=== PATIENT | female | born 1930 | race Caucasian/White ===

== ENCOUNTER 2018-12-07 14:22 | Emergency (ER) | payer BC ==
[~2018-12-07] VITALS: Ht 160 cm; Wt 61.7 kg
[2018-12-07 14:35] VITALS: BP 146/73
--- NOTE | 2018-12-07 14:41 | NUR ---
PT TO WAIT IN ER LOBBY. VSS AND [id number].
--- NOTE | 2018-12-07 15:01 | NUR ---
88 Y/O FEMALE BIB DAUGHTER. PT AAO X4 C/O OF PAIN ACROSS HER RIBS AND UPPER ABDOMEN XTODAY. PER DAUGHTER, HER PAIN IS AT A 10/10 SINCE 10AM. PER DAUGHTER, PT IS NAUSEATED, DIZZY, DRY HEAVING. PER DAUGHTER, NO MEDICATION GIVEN TO PT AND DENIES INJURY/TRAUMA TO ABDOMEN. ABDOMEN TENDER TO TOUCH AND GUARDING. BED SIDERAILS UP X1. ER TO EVALUATE PT.
--- NOTE | 2018-12-07 15:01 | NUR ---
Patient placed in bed 7 via w/c.
--- NOTE | 2018-12-07 15:48 | NUR ---
DR KNIGHT AT BEDSIDE FOR PT EVALUATION
[2018-12-07] MEDS ORDERED: KETOROLAC 60 MG/2 ML VIAL IM ONE (15:50)
--- NOTE | 2018-12-07 16:10 | NUR ---
PT LAYING DOWN AT THIS TIME. AAOX4, CONVERSATING WITH THE DAUGHTER APPROPRIATELY. NO SIGNS AND SYMPTOMS OF DISTRESS NOTED.
[2018-12-07 17:15] VITALS: BP 148/72
--- NOTE | 2018-12-07 17:15 | NUR ---
Patient discharged with v/s stable. Written and verbal after care instructions given and explained. Patient alert, oriented and verbalized understanding of instructions. Ambulatory with steady gait. All questions addressed prior to discharge. ID band removed. Patient advised to follow up with PMD. Rx of PRILOSEC 40 MG AND NORCO 5MG-325MG given. Patient educated on indication of medication including possible reaction and side effects. Opportunity to ask questions provided and answered.
== END 2018-12-07 17:15 | disposition home or self-care (01) ==
LOC: MED 14:22
DX: K44.9 Diaphragmatic hernia without obstruction or gangrene (principal); E11.9 Type 2 diabetes mellitus without complications; I10 Essential (primary) hypertension
CPT/HCPCS: 71045; 96372; 99283; J1885